=== PATIENT | male | born 1960 | race Caucasian/White ===

== ENCOUNTER → 2017-08-03 | Outpatient (CLI) | payer BC ==
[~2017-08-03] MED LIST: CIPR-255 PO; HYDR-4956 TOP; PRED10TA PO
== END | disposition home or self-care (01) ==
LOC: C.RDSM 10:57
PROVIDERS: ATTEND Orthopaedic Surgery Sports Medicine
DX: M85.60 Other cyst of bone, unspecified site (principal)